=== PATIENT | female | born 1980 | race Caucasian/White ===

== ENCOUNTER 2018-02-17 23:32 | Emergency (ER) | payer OTHER ==
[~2018-02-17] VITALS: Ht 175.3 cm; Wt 113.6 kg
[2018-02-17 23:40] VITALS: BP 125/78
== END 2018-02-17 23:50 | disposition left against medical advice (07) ==
LOC: EMS 23:32
DX: R20.0 Anesthesia of skin (principal); Z53.21 Procedure and treatment not carried out due to patient leaving prior to being seen by health care provider

== ENCOUNTER 2018-03-03 21:52 | Emergency (ER) | payer OTHER ==
[~2018-03-03] VITALS: Ht 175.3 cm; Wt 109.1 kg
[2018-03-04] MEDS ORDERED: KETOROLAC TROMETHAMINE 30 MG/ML VIAL IM ONE
[2018-03-04 00:39] VITALS: BP 124/75
== END 2018-03-04 00:57 | disposition home or self-care (01) ==
LOC: EMS 21:53
DX: N64.4 Mastodynia (principal); F17.210 Nicotine dependence, cigarettes, uncomplicated; Z90.49 Acquired absence of other specified parts of digestive tract
CPT/HCPCS: 96372; 99283; J1885

== ENCOUNTER 2018-03-05 03:13 | Emergency (ER) | payer OTHER ==
[~2018-03-05] VITALS: Ht 175.3 cm; Wt 100.0 kg
[2018-03-05 03:18] VITALS: BP 119/79
== END 2018-03-05 05:24 | disposition left against medical advice (07) ==
LOC: EMS 03:14
DX: N64.4 Mastodynia (principal); F17.210 Nicotine dependence, cigarettes, uncomplicated; Z53.21 Procedure and treatment not carried out due to patient leaving prior to being seen by health care provider